=== PATIENT | male | born 1940 | race Caucasian/White ===

== ENCOUNTER 2022-07-04 10:49 | Outpatient (CLI) | payer MEDICARE, OTHER, SELFPAY ==
[2022-07-04 15:29] LABS: Chloride* 95 mmol/L (96-114); Potassium* 4.5 mmol/L (3.6-5.1); Sodium* 131 mmol/L (135-149)
[2022-07-04 15:32] LABS: Carbon Dioxide* 26 mmol/L (20-32); Creatinine* 0.7 mg/dL (0.5-1.5); Estimated Glomerular Filt Rate 93 ml/min
[2022-07-04 15:33] LABS: Blood Urea Nitrogen* 16 mg/dL (7-30); Calcium* 9.1 mg/dL (8.4-10.6); Glucose* 105 mg/dL (60-115)
== END 2022-07-04 10:50 | disposition home or self-care (01) ==
LOC: KYNREF 10:50
PROVIDERS: PCP Nurse Practitioner Family; Visit Provider Nurse Practitioner Family
DX: Z51.81 Encounter for therapeutic drug level monitoring (principal)
CPT/HCPCS: 36415; 80048

== ENCOUNTER 2022-08-13 10:04 | Outpatient (REF) | payer MEDICARE, OTHER, SELFPAY ==
[2022-08-13 11:10] LABS: Appearance Urine Cloudy (Clear); Bilirubin Urine 2+ (Negative); Blood Urine Negative (Negative); Color Urine Yellow (Yellow); Glucose Urine Negative (Negative); Ketones Urine 1+ (Negative); Leukocyte Esterase Urine Negative (Negative); Nitrite Urine Positive (Negative); Protein Urine 2+ (Negative); Specific Gravity Urine >= 1.030 (1.000-1.030); pH Urine 5.5 (5.0-8.5)
[2022-08-13 11:32] LABS: RBC Urine 0-2 (0-2); WBC Urine 0-2 (0-5)
[2022-08-13 11:33] LABS: Bacteria Urine Many; Squamous Epithelial Cell Urine Few (None-Few); Uric Acid Crystals Urine Many
== END 2022-08-13 10:05 | disposition home or self-care (01) ==
LOC: NPINS 10:04
PROVIDERS: PCP Nurse Practitioner Family; Visit Provider Nurse Practitioner Family
DX: N39.0 Urinary tract infection, site not specified (principal)
CPT/HCPCS: 81001; 87086; 87186